=== PATIENT | male | born 1980 | race Asian ===

== ENCOUNTER 2017-12-08 06:54 | Emergency (ER) | payer OTHER ==
[~2017-12-08] VITALS: Ht 180.3 cm; Wt 83.9 kg
[2017-12-08] MEDS ORDERED: KETOROLAC TROMETH 30 MG/ML 1ML VIAL IV ONE (09:15)
[2017-12-08] MEDS ORDERED: METOCLOPRAMIDE HCL 5MG/ml INJ 2ml VIAL IV ONE (09:15)
[2017-12-08 10:10] VITALS: BP 117/69
== END 2017-12-08 10:45 | disposition home or self-care (01) ==
LOC: ER 06:54
DX: S00.03XA Contusion of scalp, initial encounter (principal); S80.12XA Contusion of left lower leg, initial encounter; M62.830 Muscle spasm of back; V43.52XA Car driver injured in collision with other type car in traffic accident, initial encounter; Y93.89 Activity, other specified; Y99.8 Other external cause status; Y92.410 Unspecified street and highway as the place of occurrence of the external cause
CPT/HCPCS: 70450; 72125; 96374; 96375; 99284; J1885; J2765